=== PATIENT | female | born 1995 | race Caucasian/White ===

== ENCOUNTER 2018-12-21 10:08 | Emergency (ER) | payer OTHER ==
--- NOTE | 2018-12-21 10:38 | ED ---
Abdominal Pain/Female - HPI Summary HPI Summary: This patient is a 23 year old F presenting to [facility] with a chief complaint of sudden stabbing lower abdominal pain since 1:00 this morning that improved with Advil and returned again at 5:00am. Pain is currently improved with Advil taken at 5:00am. Reports nausea that is currently resolved. Pain worsening with laying flat. Denies changes in BM and urinary symptoms. LNMP reported 3 weeks ago; denies chance of . - History of Current Complaint Chief Complaint: EDAbdPain Stated Complaint: LOWER ABD PAIN PER PT Time Seen by Provider: 12/21/18 10:28 Hx Obtained From: Patient Hx Last Menstrual Period: "three weeks ago" per patient Onset/Duration: Sudden Onset Timing: Hours Severity Initially: Severe Severity Currently: Mild Pain Intensity: 1 Pain Scale Used: 0-10 Numeric Location: Suprapubic Character: Sharp Aggravating Factor(s): Other: - laying down Alleviating Factor(s): OTC Analgesics Associated Signs and Symptoms: Positive: Negative Allergies/Adverse Reactions: Allergies Allergy/AdvReac Type Severity Reaction Status Date / Time No Known Allergies Allergy Verified 12/21/18 10:24 Home Medications: Home Medications Benztropine TAB* [Cogentin TAB*] 1 mg PO DAILY 12/21/18 [History Confirmed 12/21] Cariprazine HCl [Vraylar] 3 mg PO DAILY 12/21/18 [History Confirmed 12/21/18] Cyclobenzaprine (NF) [Cyclobenzaprine 5 MG (NF)] 10 mg PO BEDTIME PRN 12/21/18 [ History Confirmed 12/21/18] Dexmethylphenidate HCl [Dexmethylphenidate HCl ER] 20 mg PO BID 12/21/18 [ History Confirmed 12/21/18] Propranolol TAB* [Inderal TAB*] 10 mg PO BID 12/21/18 [History Confirmed ] PMH/Surg Hx/FS Hx/Imm Hx EENT History: Denies: Hx Deafness Psychiatric History: Reports: Hx Post Traumatic Stress Disorder, Hx Bipolar Disorder Infectious Disease History: No Infectious Disease History: Denies: Traveled Outside the [place] in Last 30 Days - Family History Known Family History: Negative: Renal Disease Review of Systems Positive: Abdominal Pain, Nausea. Negative: Diarrhea Positive: no symptoms reported All Other Systems Reviewed And Are Negative: Yes Physical Exam - Summary Physical Exam Summary: Appearance: The patient is well-nourished in no acute distress and in no acute pain. Skin: The skin is warm and dry and skin color reflects adequate perfusion. HEENT: The head is normocephalic and atraumatic. The pupils are equal and reactive. The conjunctivae are clear and without drainage. Nares are patent and without drainage. Mouth reveals moist mucous membranes and the throat is without erythema and exudate. The external ears are intact. The ear canals are patent and without drainage. The tympanic membranes are intact. Neck: The neck is supple with full range of motion and non-tender. There are no carotid bruits. There is no neck vein distension. Respiratory: Chest is non-tender. Lungs are clear to auscultation and breath sounds are symmetrical and equal. Cardiovascular: Heart is regular rate and rhythm. There is no murmur or rub auscultated. There is no peripheral edema and pulses are symmetrical and equal. Abdomen: The abdomen is soft. There are normal bowel sounds heard in all four quadrants and there is no organomegaly palpated. Diffuse lower abdominal tenderness present. Musculoskeletal: There is no back tenderness noted. Extremities are non-tender with full range of motion. There is good capillary refill. There is no peripheral edema or calf tenderness elicited. Neurological: Patient is alert and oriented to person, place and time. The patient has symmetrical motor strength in all four extremities. Cranial nerves are grossly intact. Deep tendon reflexes are symmetrical and equal in all four extremities. Psychiatric: The patient has an appropriate affect and does not exhibit any anxiety or depression Triage Information Reviewed: Yes Vital Signs On Initial Exam: Initial Vitals Temp Pulse Resp BP Pulse Ox 97.6 F 81 18 117/77 100 12/21/18 10:22 12/21/18 10:22 12/21/18 10:22 12/21/18 10:22 12/21/18 10:22 Vital Signs Reviewed: Yes Diagnostics - Vital Signs Vital Signs Temp Pulse Resp BP Pulse Ox 12/21/18 10:22 97.6 F 81 18 117/77 100 - Laboratory Result Diagrams: 12/21/18 10:55 12/21/18 10:55 Lab Statement: Any lab studies that have been ordered have been reviewed, and results considered in the medical decision making process. - Additional Comments Diagnostic Additional Comments: An appendix US reveals, "Appendix not visualized." as per radiologist. A Transvaginal US reveals, "Left ovarian cyst measuring 3.2 x 1.7 x 1.6 cm." as per radiologist. ED physician has reviewed these reports. Abdominal Pain Fem Course/Dx - Course Course Of Treatment: Ms. Buckner presented with a fairly acute onset of low abdominal pain. She was tender in her bilateral lower quadrants with no rebound. She was nontoxic in appearance with stable vital signs. Her workup was generally unremarkable aside from a left ovarian cyst. This may be the source of her pain I recommended conservative treatment and follow-up. - Diagnoses Provider Diagnoses: Abdominal pain, Ovarian cyst Discharge - Sign-Out/Discharge Documenting (check all that apply): Patient Departure - discharge Patient Received Moderate/Deep Sedation with Procedure: No - Discharge Plan Condition: Stable Disposition: HOME Patient Education Materials: Ovarian Cyst (ED) Referrals: No Primary Care Phys,NOPCP [Primary Care Provider] - [facility] [place] PHYSICIAN REFERRAL [Outside] - 2 Days (Contact the physician referral number in order to establish a primary care provider if you do not have one. OR follow up with your OBGYN.) Additional Instructions: RETURN TO THE EMERGENCY DEPARTMENT FOR CHANGING OR WORSENING SYMPTOMS. - Billing Disposition and Condition Condition: STABLE Disposition: Home - Attestation Statements Document Initiated by Scribe: Yes Documenting Scribe: Frances Cazares Provider For Whom Joy is Documenting (Include Credential): Chepe Chan MD Scribe Attestation: IFrances, scribed for Chepe Chan MD on 12/21/18 at 1245. Scribe Documentation Reviewed: Yes Provider Attestation: The documentation as recorded by the Frances sanchez accurately reflects the service I personally performed and the decisions made by me, Chepe Chan MD Status of Scribe Document: Viewed
[2018-12-21 10:58] LABS: Urine Appearance Cloudy; Urine Bacteria Absent (Absent); Urine Bilirubin Negative (Negative); Urine Blood 1+ (Negative); Urine Color Colorless; Urine Glucose Negative (Negative); Urine Ketones Negative (Negative); Urine Nitrite Negative (Negative); Urine Protein Negative (Negative); Urine Red Blood Cell Trace(0-2/hpf) (Absent); Urine Specific Gravity 1.001 (1.010-1.030); Urine Squamous Epithelial Cell Present (Absent); Urine Urobilinogen Negative (Negative); Urine White Blood Cell Trace(0-5/hpf) (Absent)
[2018-12-21 11:01] LABS: ABS Eosinophils 0.1 10^3/ul (0-0.6); ABS Lymphocytes 1.5 10^3/ul (1.0-4.8); ABS Monocytes 0.6 10^3/ul (0-0.8); ABS Neutrophils 4.3 10^3/ul (1.5-7.7); Hematocrit 41 % (35-47); Lymphocyte % 23.2 %; Mean Corpuscular HGB Conc 34 g/dL (31-36); Mean Corpuscular Hemoglobin 28 pg (27-31); Mean Corpuscular Volume 83 fL (80-97); Mean Platelet Volume 8.7 fL (7.4-10.4); Nucleated Red Blood Cells % 0.1; Platelet Count 213 10^3/uL (150-450); Red Blood Count 4.94 10^6 /uL (3.70-4.87); Red Cell Distribution Width 13 % (10.5-15); White Blood Count 6.6 10^3/uL (3.5-10.8)
[2018-12-21 11:19] LABS: ALT 6 U/L (7-52); AST 12 U/L (13-39); Albumin 4.2 g/dL (3.2-5.2); Albumin/Globulin Ratio 1.8 (1-3); Alkaline Phosphatase 47 U/L (34-104); Anion Gap 6 mmol/L (2-11); BUN/Creatinine Ratio 13.3 (8-20); Blood Urea Nitrogen 8 mg/dL (6-24); C Reactive Protein 1.11 mg/L (<8.01); CO2 Carbon Dioxide 26 mmol/L (22-32); Calcium 9.2 mg/dL (8.6-10.3); Chloride 105 mmol/L (101-111); EGFR African American 148.6 (>60); EGFR Non-African American 122.8 (>60); Globulin 2.4 g/dL (2-4); Glucose 98 mg/dL (70-100); Potassium 3.7 mmol/L (3.5-5.0); Sodium 137 mmol/L (135-145); Total Protein 6.6 g/dL (6.4-8.9)
[2018-12-21 11:25] LABS: HCG Pregnancy < 0.60 mIU/mL
[2018-12-21 12:31] VITALS: BP 104/72
== END 2018-12-21 12:29 | disposition home or self-care (01) ==
LOC: ED 10:08
DX: R10.32 Left lower quadrant pain (principal); R10.31 Right lower quadrant pain; N83.202 Unspecified ovarian cyst, left side; F31.9 Bipolar disorder, unspecified
CPT/HCPCS: 36415; 76705; 76830; 80053; 81003; 81015; 83605; 84702; 85025; 86140; 87086; 99282

== ENCOUNTER 2019-02-13 13:31 | Emergency (ER) | payer OTHER ==
[2019-02-13 14:53] LABS: ABS Lymphocytes 0.8 10^3/ul (1.0-4.8); ABS Monocytes 0.5 10^3/ul (0-0.8); ABS Neutrophils 6.7 10^3/ul (1.5-7.7); Eosinophil % 0.2 %; Hematocrit 42 % (35-47); Hemoglobin 14.4 g/dL (12.0-16.0); Lymphocyte % 10.5 %; Mean Corpuscular HGB Conc 34 g/dL (31-36); Mean Corpuscular Hemoglobin 28 pg (27-31); Mean Corpuscular Volume 82 fL (80-97); Mean Platelet Volume 9.1 fL (7.4-10.4); Nucleated Red Blood Cells % 0.2; Platelet Count 217 10^3/uL (150-450); Red Blood Count 5.09 10^6 /uL (3.70-4.87); Red Cell Distribution Width 13 % (10-15); White Blood Count 8.1 10^3/uL (3.5-10.8)
[2019-02-13 15:10] LABS: ALT 6 U/L (7-52); AST 12 U/L (13-39); Albumin 4.4 g/dL (3.2-5.2); Albumin/Globulin Ratio 1.7 (1-3); Alkaline Phosphatase 46 U/L (34-104); Anion Gap 6 mmol/L (2-11); BUN/Creatinine Ratio 23.3 (8-20); Blood Urea Nitrogen 14 mg/dL (6-24); CO2 Carbon Dioxide 29 mmol/L (22-32); Calcium 10.1 mg/dL (8.6-10.3); Chloride 102 mmol/L (101-111); EGFR African American 148.6 (>60); EGFR Non-African American 122.8 (>60); Globulin 2.6 g/dL (2-4); Glucose 176 mg/dL (70-100); Magnesium 1.8 mg/dL (1.9-2.7); Potassium 3.6 mmol/L (3.5-5.0); Sodium 137 mmol/L (135-145)
[2019-02-13 15:16] LABS: HCG Pregnancy < 0.60 mIU/mL
[2019-02-13 15:31] LABS: TSH (Thyroid Stimulating Horm) 0.69 mcIU/mL (0.34-5.60)
--- NOTE | 2019-02-13 16:30 | ED ---
Syncope/Near Syncope - HPI Summary HPI Summary: A 23 y/o female presents to [facility] with a chief complaint of fainting about 2 times per day for the past month. 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 She denies any LOC. She says that she does not lose consciousness, she just faints. She has not had this problem before. The LASER ENGINEER that she sees instructed her to come to the ED. She denies any cough, fevers, diarrhea, constipation, or dizziness, but reports some N/V, whose timing has not been associated with the fainting episodes. The patient takes 1.5 mg Vraylar daily for bipolar but denies any other MHx. She denies any FHx. She denies any smoking or EtOH use. - History Of Current Complaint Chief Complaint: EDSyncope Time Seen by Provider: 02/13/19 16:22 Hx Obtained From: Patient Onset/Duration: Sudden Onset, Lasting Weeks, Still Present Timing: Intermittent Episode Lasting - 2x per day Context: Witnessed Activity At Onset: Other - standing Aggravating Factor(s): Nothing Alleviating Factor(s): Nothing Associated Signs And Symptoms: Vomiting - Allergies/Home Medications Allergies/Adverse Reactions: Allergies Allergy/AdvReac Type Severity Reaction Status Date / Time No Known Allergies Allergy Verified 12/21/18 10:24 Home Medications: Home Medications Cariprazine HCl [Vraylar] 1.5 mg PO DAILY 02/13/19 [History Confirmed 02/13/19] Dexmethylphenidate HCl [Dexmethylphenidate HCl ER] 40 mg PO BID 02/13/19 [ History Confirmed 02/13/19] Devon Carbonate CAP 150 mg PO BEDTIME 02/13/19 [History Confirmed 02/13/19] Propranolol TAB* [Inderal TAB*] 10 mg PO QAM 02/13/19 [History Confirmed ] Propranolol TAB* [Inderal TAB*] 20 mg PO QPM 02/13/19 [History Confirmed ] PMH/Surg Hx/FS Hx/Imm Hx Endocrine/Hematology History: Denies: Hx Diabetes Cardiovascular History: Denies: Hx Hypercholesterolemia, Hx Hypertension Sensory History: Denies: Hx Deafness Psychiatric History: Reports: Hx Post Traumatic Stress Disorder, Hx Bipolar Disorder Infectious Disease History: No Infectious Disease History: Denies: Traveled Outside the [place] in Last 30 Days - Family History Known Family History: Negative: Cardiac Disease, Hypertension, Diabetes, Renal Disease - Social History Alcohol Use: Rare Substance Use Type: Reports: Marijuana Smoking Status (MU): Never Smoked Tobacco Review of Systems Negative: Fever Negative: Cough Positive: Vomiting, Nausea, Other - negative: constipation. Negative: Diarrhea Neurological: Other - positive: fainting. negative: LOC, dizziness All Other Systems Reviewed And Are Negative: Yes Physical Exam - Summary Physical Exam Summary: VITAL SIGNS: Reviewed. GENERAL: Patient is a well-developed and nourished FEMALE who is lying comfortable in the stretcher. Patient is not in any acute respiratory distress. HEAD AND FACE: No signs of trauma. No ecchymosis, hematomas or skull depressions. No sinus tenderness. EYES: PERRLA, EOMI x 2, No injected conjunctiva, no nystagmus. EARS: Hearing grossly intact. Ear canals and tympanic membranes are within normal limits. MOUTH: Oropharynx within normal limits. NECK: Supple, trachea is midline, no adenopathy, no JVD, no carotid bruit, no c- spine tenderness, neck with full ROM. CHEST: Symmetric, no tenderness at palpation. LUNGS: Clear to auscultation bilaterally. No wheezing or crackles. CVS: Regular rate and rhythm, S1 and S2 present, no murmurs or gallops appreciated. ABDOMEN: Soft, non-tender. No signs of distention. No rebound, no guarding, and no masses palpated. Bowel sounds are normal. EXTREMITIES: FROM in all major joints, no edema, no cyanosis or clubbing. NEURO: Alert and oriented x 3. No acute neurological deficits. Speech is normal and follows commands. SKIN: Dry and warm. Triage Information Reviewed: Yes Vital Signs On Initial Exam: Initial Vitals Temp Pulse Resp BP Pulse Ox 98.3 F 114 18 116/83 99 02/13/19 13:32 02/13/19 13:32 02/13/19 13:32 02/13/19 13:32 02/13/19 13:32 Vital Signs Reviewed: Yes Diagnostics - Vital Signs Vital Signs Temp Pulse Resp BP Pulse Ox 02/13/19 15:02 98.1 F 80 20 116/64 100 02/13/19 13:32 98.3 F 114 18 116/83 99 - Laboratory Lab Results: Lab Results 02/13/19 02/13/19 02/13/19 Range/Units 14:38 14:38 14:38 WBC 8.1 (3.5-10.8) 10^3/uL RBC 5.09 H (3.70-4.87) 10^6 /uL Hgb 14.4 (12.0-16.0) g/dL Hct 42 (35-47) % MCV 82 (80-97) fL MCH 28 (27-31) pg MCHC 34 (31-36) g/dL RDW 13 (10-15) % Plt Count 217 (150-450) 10^3/uL MPV 9.1 (7.4-10.4) fL Neut % (Auto) 83.3 % Lymph % (Auto) 10.5 % Stearns % (Auto) 5.6 % Eos % (Auto) 0.2 % Baso % (Auto) 0.4 % Absolute Neuts (auto) 6.7 (1.5-7.7) 10^3/ul Absolute Lymphs (auto) 0.8 L (1.0-4.8) 10^3/ul Absolute Monos (auto) 0.5 (0-0.8) 10^3/ul Absolute Eos (auto) 0.0 (0-0.6) 10^3/ul Absolute Basos (auto) 0.0 (0-0.2) 10^3/ul Absolute Nucleated RBC 0.0 10^3/ul Nucleated RBC % 0.2 Sodium 137 (135-145) mmol/L Potassium 3.6 (3.5-5.0) mmol/L Chloride 102 (101-111) mmol/L Carbon Dioxide 29 (22-32) mmol/L Anion Gap 6 (2-11) mmol/L BUN 14 (6-24) mg/dL Creatinine 0.60 (0.51-0.95) mg/dL Est GFR ( Amer) 148.6 (>60) Est GFR (Non-Af Amer) 122.8 (>60) BUN/Creatinine Ratio 23.3 H (8-20) Glucose 176 H (70-100) mg/dL Lactic Acid 1.0 (0.5-2.0) mmol/L Calcium 10.1 (8.6-10.3) mg/dL Magnesium 1.8 L (1.9-2.7) mg/dL Total Bilirubin 0.60 (0.2-1.0) mg/dL AST 12 L (13-39) U/L ALT 6 L (7-52) U/L Alkaline Phosphatase 46 (34-104) U/L Total Protein 7.0 (6.4-8.9) g/dL Albumin 4.4 (3.2-5.2) g/dL Globulin 2.6 (2-4) g/dL Albumin/Globulin Ratio 1.7 (1-3) TSH 0.69 (0.34-5.60) mcIU/mL Beta HCG, Quant < 0.60 mIU/mL Result Diagrams: 02/13/19 14:38 02/13/19 14:38 Lab Statement: Any lab studies that have been ordered have been reviewed, and results considered in the medical decision making process. - EKG 14:54 Cardiac Rate: NL - 75 bpm EKG Rhythm: Sinus Rhythm ST Segment: Normal Summary of EKG Findings: NSR at 75 bpm, no ST elevations, no delta waves. Course/Dx Assessment/Plan: A 23 y/o female presents to [facility] with a chief complaint of fainting about 2 times per day for the past month. 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 She denies any LOC. She says that she does not lose consciousness, she just faints. She has not had this problem before. The LASER ENGINEER that she sees instructed her to come to the ED. She denies any cough, fevers, diarrhea, constipation, or dizziness, but reports some N/V, whose timing has not been associated with the fainting episodes. The patient takes 1.5 mg Vraylar daily for bipolar but denies any other MHx. She denies any FHx. She denies any smoking or EtOH use. EKG is a shows a normal sinus rhythm without ST elevation. Blood work without any significant abnormality except for glucose 176, magnesium 1.8, and urinalysis is contaminated. Therefore we will send the urine for culture. At this point I believe that the patient has only fainting episodes for which the patient will follow with the primary care physician for further workup and management. She is not having syncope because she doesnt have any loss of consciousness. test is also negative. Patient is eating and drinking without any significant abnormality. Patient is hemodynamically stable alert and oriented 3. - Diagnoses Provider Diagnoses: Fainting episodes Discharge - Sign-Out/Discharge Documenting (check all that apply): Patient Departure - DC Patient Received Moderate/Deep Sedation with Procedure: No - Discharge Plan Condition: Stable Disposition: HOME Referrals: Melody Hdz [Primary Care Provider] - (2-3 days) Additional Instructions: FOLLOW UP WITH YOUR PRIMARY CARE PROVIDER WITHIN 2-3 DAYS. RETURN TO THE ED FOR ANY WORSENING OR NEW SYMPTOMS. - Billing Disposition and Condition Condition: STABLE Disposition: Home - Attestation Statements Document Initiated by Joy: Yes Documenting Scribe: Gama Ortega Provider For Whom Joy is Documenting (Include Credential): Dhaval Milligan MD Scribe Attestation: Gama Hernandez scribed for Dhaval Milligan MD on 02/14/19 at 1050. Scribe Documentation Reviewed: Yes Provider Attestation: The documentation as recorded by the Gama sanchez accurately reflects the service I personally performed and the decisions made by Dhaval little MD Status of Scribe Document: Viewed
[2019-02-13] MEDS ORDERED: Magnesium Oxide TAB* 400 MG PO ONE (17:14)
[2019-02-13 18:01] LABS: Urine Appearance Cloudy; Urine Bacteria Absent (Absent); Urine Bilirubin Negative (Negative); Urine Blood 1+ (Negative); Urine Color Yellow; Urine Glucose Negative (Negative); Urine Ketones 1+ (Negative); Urine Nitrite Negative (Negative); Urine Protein Negative (Negative); Urine Red Blood Cell 2+(6-10/hpf) (Absent); Urine Specific Gravity 1.018 (1.010-1.030); Urine Squamous Epithelial Cell Present (Absent); Urine Urobilinogen Negative (Negative); Urine White Blood Cell 1+(6-10/hpf) (Absent)
[2019-02-13 18:42] VITALS: BP 126/76
== END 2019-02-13 18:42 | disposition home or self-care (01) ==
LOC: ED 13:31
DX: R55 Syncope and collapse (principal); R11.2 Nausea with vomiting, unspecified; F31.9 Bipolar disorder, unspecified
CPT/HCPCS: 36415; 80053; 81003; 81015; 83605; 83735; 84443; 84702; 85025; 87086; 93005; 99282